=== PATIENT | male | born 1975 | race Caucasian/White ===

== ENCOUNTER 2024-05-19 17:04 | Emergency (ER) | payer SELFPAY ==
[2024-05-19 17:29] VITALS: BP 155/94; PULSE 68; RESP 15; TEMP 36.4; O2SAT 99
--- NOTE | 2024-05-19 18:51 | PC.NURSE ---
Patient walked out of department. patient A&Ox4 and states he has places to be and cant stay
== END 2024-05-19 21:31 | disposition left against medical advice (07) ==
LOC: ANHED 21:20
DX: S69.91XA Unspecified injury of right wrist, hand and finger(s), initial encounter (principal)
CPT/HCPCS: 99199